=== PATIENT | male | born 1985 | race Hispanic/Latino ===

== ENCOUNTER 2018-09-03 17:24 | Emergency (ER) | payer OTHER ==
[2018-09-03] MEDS ORDERED: Lidocaine 2% w Epi 1:100,000 Inj IJ ONE (18:23)
[2018-09-03] MEDS: Lidocaine 2% w Epi 1:100,000 Inj IJ ONE (18:30)
[2018-09-03] MEDS: Sodium Chloride 0.9% 1,000 ML IV STA (18:42)
[2018-09-03 18:55] LABS: BASO # 0.1 K/uL (0.0-0.2); BASO % 0.8 % (0.0-2.0); EOS % 0.3 % (0.0-4.0); HEMOGLOBIN 11.7 g/dL (12.0-18.0); LYMPH # 1.2 K/uL (1.0-4.3); LYMPH % 9.3 % (20.0-40.0); MEAN CELL VOLUME 64.8 fl (80.0-94.0); MEAN CORPUSCULAR HEMOGLOBIN 21.2 pg (27.0-31.0); MEAN CORPUSCULAR HGB CONC 32.7 g/dL (33.0-37.0); MEAN PLATELET VOLUME 8.8 fl (7.2-11.7); MONO # 1.5 K/uL (0.0-0.8); MONO % 11.7 % (0.0-10.0); NEUT % 77.9 % (50.0-75.0); NRBC % 0.5 % (0.0-0.0); PLATELET COUNT 291 K/uL (130-400); RBC 5.54 Mil/uL (4.40-5.90); RED CELL DISTRIBUTION WIDTH 16.2 % (11.5-14.5); WHITE BLOOD COUNT 12.9 K/uL (4.8-10.8)
[2018-09-03 19:15] LABS: ALB/GLOB RATIO 1.1 (1.0-2.1); ALBUMIN 4.5 g/dL (3.5-5.0); ALT/SGPT 23 U/L (21-72); AST/SGOT 30 U/L (17-59); BLOOD UREA NITROGEN 12 mg/dl (9-20); CALCIUM 9.8 mg/dL (8.4-10.2); GFR NON-AFRICAN AMERICAN > 60
[2018-09-03 19:54] LABS: CSF VOLUME 1 mL (0-1); FLUID TYPE SPINAL FLUID
--- NOTE | 2018-09-03 19:54 | ED PDOC ---
HPI: General Adult Time Seen by Provider: 09/03/18 17:48 Chief Complaint (Nursing): Fever Chief Complaint (Provider): Fever History Per: Patient History/Exam Limitations: no limitations Onset/Duration Of Symptoms: Other (x1 week) Current Symptoms Are (Timing): Still Present Additional Complaint(s): 32 year old male, with no medical problems, reports 1 week of fever and sore throat. Patient states he went to an urgent care center and was given flagyl and levaquin. Symptoms, however, persist and over the last 2 days, he developed a headache, neck pain, and neck stiffness. Last time patient took anything was last night when he took Tylenol. Patient's Tmax was 101 at another urgent care center who sent him to the ER for further evaluation. Patient is also reporting decreased appetite and body aches. PMD: none Past Medical History Reviewed: Historical Data, Nursing Documentation, Vital Signs Vital Signs: Last Vital Signs Temp 99.0 F 09/03/18 17:32 Pulse 137 H 09/03/18 17:32 Resp 16 09/03/18 17:32 BP 132/90 09/03/18 17:32 Pulse Ox 98 09/03/18 17:32 - Medical History PMH: No Chronic Diseases - Surgical History Surgical History: No Surg Hx - Family History Family History: States: No Known Family Hx - Social History Current smoker - smoking cessation education provided: No Alcohol: Social (2-3x per month) - Allergies Allergies/Adverse Reactions: Allergies Allergy/AdvReac Type Severity Reaction Status Date / Time ampicillin Allergy RASH Verified 09/03/18 17:39 Review of Systems ROS Statement: Except As Marked, All Systems Reviewed And Found Negative (as per HPI) Constitutional: Positive for: Fever ENT: Positive for: Throat Pain Musculoskeletal: Positive for: Neck Pain (and stiffness) Neurological: Positive for: Headache Physical Exam - Reviewed Nursing Documentation Reviewed: Yes Vital Signs Reviewed: Yes - Physical Exam Appears: Positive for: In Acute Distress (mild painful distress) Head Exam: Positive for: ATRAUMATIC, NORMOCEPHALIC Skin: Positive for: Warm, Dry Eye Exam: Positive for: EOMI, PERRL ENT: Positive for: Pharynx Is (clear). Negative for: Pharyngeal Erythema, Tonsillar Exudate Neck: Positive for: Trachea Midline Cardiovascular/Chest: Positive for: Regular Rate, Rhythm, Tachycardia Respiratory: Positive for: Normal Breath Sounds. Negative for: Wheezing, Respiratory Distress Gastrointestinal/Abdominal: Positive for: Soft. Negative for: Tenderness Back: Positive for: Other (Mild cervical paraspinal tenderness to palpation but no stiffness) Extremity: Positive for: Normal ROM. Negative for: Deformity Lymphatic: Negative for: Adenopathy Neurologic/Psych: Positive for: Alert. Negative for: Motor/Sensory Deficits - Laboratory Results Result Diagrams: 09/03/18 18:40 09/03/18 18:40 - ECG O2 Sat by Pulse Oximetry: 98 (RA) Pulse Ox Interpretation: Normal Medical Decision Making Medical Decision Making: Initial Impression: Febrile illness Differential includes but not limited to meningitis, viral syndrome, flu, persistent tonsillitis pharyngitis, sepsis, dehydration Initial Plan: --CMP --Glucose stat --Lact acid stat --Total protein stat --CBC --Cell count stat --Herpes stat --Dextrose 1000ml IV --Sodium chloride 1000mL IV --Toradol 15mg IV --Tylenol 975mg PO --Lidocaine 5mL IJ --Blood culture --CSF culture --Throat culture --Urine culture --Bacterial antigen stat --Infectious mononucleosis stat --Influenza A B stat --Rapid strep --Urinalysis DW pt risks/benefits of lumbar puncture with patient and consent signed. See lumbar puncture report. Labs demonstrate leukocytosis and flu B+ CSF negative for meningitis DW pt findings and plan of care. Scribe Attestation: Documented by Marcial Bradford acting as a scribe for Inez Chandra MD. Provider Scribe Attestation: All medical record entries made by the Scribe were at my direction and personally dictated by me. I have reviewed the chart and agree that the record accurately reflects my personal performance of the history, physical exam, medical decision making, and the department course for this patient. I have also personally directed, reviewed, and agree with the discharge instructions and disposition. Disposition - Clinical Impression Clinical Impression: Influenza Counseled Patient/Family Regarding: Studies Performed, Diagnosis, Need For Followup - Disposition Referrals: [facility] [Outside] (FOLLOW UP WITH YOUR DOCTOR OR [facility] IN 2-3 DAYS FOR REEVALUATION) Disposition: Routine/Home Disposition Time: 20:40 Condition: STABLE Instructions: Flu, Adult (DC) Forms: [employer] ([place]ian), [facility] ED School/Work Excuse Lumbar Puncture - Time Out Time Out: Side verified, Site verified, Patient ID confirmed, Sterile procedures obs. - Consent obtained Consent obtained: Written - Performed by Performed by: Attending Physician - Indications Indication(s): Suspected menigitis - Contraindications Contraindications: None - Patient Position Patient position: Sitting - Local Anesthetic Location: L4/L5 - Fluid Appearance Fluid Appearance: Clear - Post-procedure Post-procedure: No leak/bld from LP site, Dressing applied, Patient laid flat, Neurovascular status nml - CSF Studies CSF Studies: Cell count/diff, Glucose, Protein, Antigens - Post-procedural O2 sat % Post-Procedural O2 sat %: 100 - Complications Complications: None - Patient tolerated procedure Patient tolerated procedure: Well
[2018-09-03 19:55] LABS: CSF APPEARANCE CLEAR/COLORLESS (CLEAR); CSF MONO/MACROPHAGE 0 % (0-0)
[2018-09-03 20:54] VITALS: BP 112/62; PULSE 102; RESP 18; TEMP 98.7
[2018-09-03 21:09] VITALS: O2SAT 98
[2018-09-03 21:38] LABS: ANISOCYTOSIS SLIGHT; BANDS 2 % (0-2); LYMPHOCYTE 8 % (20-50); MICROCYTOSIS MODERATE; MONOCYTE 7 % (0-10); NEUTROPHIL 83 % (42-75); PLATELET ESTIMATE NORMAL (NORMAL); TOTAL CELLS COUNTED 100
[2018-09-03 21:39] LABS: HYPOCHROMIC SLIGHT; OVALOCYTES SLIGHT; POLYCHROMIC SLIGHT
[2018-09-04 13:10] LABS: N MENINGITIS ACY/W135 NEGATIVE (NEGATIVE); N MENINGITIS B/ECOLI K1 NEGATIVE (NEGATIVE); STREP PNEUMONIAE NEGATIVE (NEGATIVE); STREPTOCOCCUS B NEGATIVE (NEGATIVE)
[2018-09-06 00:18] LABS: SPECIMEN SOURCE CSF
== END 2018-09-03 20:55 | disposition home or self-care (01) ==
LOC: H.ER 17:24
DX: J11.1 Influenza due to unidentified influenza virus with other respiratory manifestations (principal); R51 Headache; M25.60 Stiffness of unspecified joint, not elsewhere classified
CPT/HCPCS: 62270; 80053; 82945; 83605; 84157; 85025; 86308; 86403; 87040; 87070; 87430; 87529; 87804; 89050; 96374; 99285; J1885; J7030